=== PATIENT | male | born 1960 | race Two or more races ===

== ENCOUNTER 2019-05-18 05:25 | Day surgery (SDC) | payer OTHER ==
[2019-05-18] MEDS ORDERED: ULTRACET PO (19:31)
[2019-05-18] MEDS ORDERED: NEURONTIN300 MG PO (19:32)
[2019-05-18] MEDS ORDERED: COLACE100 MG PO (19:33)
== END 2019-05-18 22:45 | disposition home or self-care (01) ==
LOC: CIR.AMB 05:25
DX: K40.90 Unilateral inguinal hernia, without obstruction or gangrene, not specified as recurrent (principal)

== ENCOUNTER → 2019-07-29 | Day surgery (SDC) | payer OTHER ==
[~2019-07-29] MED LIST: COLACE100 MG PO; NEURONTIN300 MG PO; ULTRACET PO
== END | disposition home or self-care (01) ==
LOC: ADM 07-22 12:00 → AMB-ENDOS 05:31
DX: K29.60 Other gastritis without bleeding (principal); K64.1 Second degree hemorrhoids

== ENCOUNTER 2020-11-15 19:49 | Emergency (ER) | payer OTHER ==
[~2020-11-15] VITALS: Ht 182.9 cm; Wt 90.7 kg
== END 2020-11-15 23:10 | disposition home or self-care (01) ==
LOC: ER 19:49
DX: M54.5 Low back pain (principal)

== ENCOUNTER 2021-07-30 07:00 | Inpatient (IN) | payer OTHER ==
[~2021-07-30] VITALS: Ht 182.9 cm; Wt 95.3 kg
[2021-08-06] MEDS ORDERED: NEURONTIN800 MG PO (12:29)
[2021-08-06] MEDS ORDERED: MEDROLPACK PO (12:29)
[2021-08-06] MEDS ORDERED: DIAZEPAM5 MG PO (12:29)
[2021-08-06] MEDS ORDERED: COLACE100 MG PO (12:29)
[2021-08-06] MEDS ORDERED: AMOX-CLAV 875-1 EACH PO (12:29)
[2021-08-06] MEDS ORDERED: PERCOCET 5-3251 EACH PO (12:29)
== END 2021-08-08 15:02 | disposition home or self-care (01) | DRG 455 ==
LOC: SURH 08-06 07:00 → O/R 08-06 07:28 → SURH 08-06 15:05
PROVIDERS: ADMIT Orthopaedic Surgery Orthopaedic Surgery of the Spine; ATTEND Orthopaedic Surgery Orthopaedic Surgery of the Spine
PROC: 0SG00J1 Fusion of Lumbar Vertebral Joint with Synthetic Substitute, Posterior Approach, Posterior Column, Open Approach (ICD-10-PCS; 2021-08-06)
PROC: 07DR0ZZ Extraction of Iliac Bone Marrow, Open Approach (ICD-10-PCS; 2021-08-06)
PROC: 0SG00A0 Fusion of Lumbar Vertebral Joint with Interbody Fusion Device, Anterior Approach, Anterior Column, Open Approach (ICD-10-PCS; principal; 2021-08-06 11:00)
DX: M48.062 Spinal stenosis, lumbar region with neurogenic claudication (principal); M51.36 Other intervertebral disc degeneration, lumbar region

== ENCOUNTER 2023-04-18 14:00 | Inpatient (IN) | payer OTHER ==
[~2023-04-18] VITALS: Ht 182.9 cm; Wt 90.7 kg
[~2023-04-18 14:00] MED LIST changes: +AMOX-CLAV 875-1 EACH PO; +DIAZEPAM5 MG PO; +MEDROLPACK PO; +NEURONTIN800 MG PO; +PERCOCET 5-3251 EACH PO
[2023-04-27] MEDS ORDERED: INTEGRA PLUS C1 EACH PO (10:50)
[2023-04-27] MEDS ORDERED: PEPCID AC20 MG PO (10:50)
[2023-04-27] MEDS ORDERED: prednisone 20 mg PO (10:50)
[2023-04-27] MEDS ORDERED: DELZICOL400 M1 PO (10:50)
[2023-04-27] MEDS ORDERED: INTESTINEX680 M1 PO (10:50)
[2023-04-27] MEDS ORDERED: ABANEU-SL TABL1 EACH SL (10:50)
== END 2023-04-27 14:48 | disposition home or self-care (01) | DRG 387 ==
LOC: ER 14:00 → SURG 22:15 → MEDI 22:15 → SURG 04-19 05:43
PROVIDERS: ADMIT Internal Medicine Geriatric Medicine; ATTEND Internal Medicine Geriatric Medicine
PROC: BW21YZZ Computerized Tomography (CT Scan) of Abdomen and Pelvis using Other Contrast (ICD-10-PCS; 2023-04-18)
PROC: 02HV33Z Insertion of Infusion Device into Superior Vena Cava, Percutaneous Approach (ICD-10-PCS; 2023-04-20)
PROC: 3E0436Z Introduction of Nutritional Substance into Central Vein, Percutaneous Approach (ICD-10-PCS; 2023-04-20)
PROC: 0DBP8ZX Excision of Rectum, Via Natural or Artificial Opening Endoscopic, Diagnostic (ICD-10-PCS; principal; 2023-04-22)
PROC: 0DBN8ZX Excision of Sigmoid Colon, Via Natural or Artificial Opening Endoscopic, Diagnostic (ICD-10-PCS; 2023-04-22)
DX: K51.311 Ulcerative (chronic) rectosigmoiditis with rectal bleeding (principal); K64.0 First degree hemorrhoids; M79.645 Pain in left finger(s); M65.4 Radial styloid tenosynovitis [de Quervain]; R14.0 Abdominal distension (gaseous)